=== PATIENT | female | born 1955 | race Caucasian/White ===

== ENCOUNTER 2017-09-17 13:27 | Observation (INO) | payer OTHER ==
[2017-09-17] VITALS (9 sets, daily range): BP systolic 132–165; BP diastolic 72–98; PULSE 47–59; RESP 16–19; TEMP 98.2–98.7; O2SAT 93–100
[~2017-09-17] VITALS: Ht 162.6 cm; Wt 70.0 kg
[2017-09-17] MEDS ORDERED: SODIUM CHLORID 0.9% 500 ML INJ 500 ML IV ONE (14:00)
[2017-09-17] MEDS ORDERED: NITROGLYCERIN 0.4 MG SL 25 TABS/BTL SL ONE (14:00)
[2017-09-17] MEDS ORDERED: MORPHINE SULFATE 4 MG/ML INJ IV PUSH ONE (14:00)
[2017-09-17] MEDS ORDERED: SODIUM CHLORIDE 0.9% FLUSH 10 ML FLUSH IVF PRN (14:00)
--- NOTE | 2017-09-17 14:11 | PD ---
HPI Chief Complaint: Chest Pain Time Seen by Provider: 13:36 Travel History International Travel<30 days: No Contact w/Intl Traveler<30days: No Traveled to known affect area: No History of Present Illness HPI The patient is a 62-year-old female who presents emergency department for chest pain. The patient states she recently traveled to [place] to see her family. She states her family members were sick at that time. She then returned home and had cough and cold symptoms. The cough and cold symptoms resolved approximately 2 weeks ago, she was seen by her primary physician Dr. Levine's office , and had a checkup that was negative per her report. However, the last 2 weeks she has had chest pain which is substernal, radiates bilaterally to the rib cage into the back. She complains of shortness of breath without any nausea , vomiting, or diaphoresis. The patient does have a history of hypertension, diabetes, and marijuana use. Denies any known history of coronary artery disease or hyperlipidemia. She does have a family history of heart disease, states her father had a CABG in his 50s. She denies any previous stress test or cardiac catheterization. She denies any exertional symptoms, can have symptoms that rest or with activity. The patient was evaluated at Dr. Infante's office who referred her to the emergency department for further evaluation of chest pain. The patient received aspirin 325 mg orally prior to arrival. [facility] Past Medical History Diabetes: Yes Patient Takes Glucophage: Yes Hypertension: Yes Medical other: Yes (CKD ) Past Surgical History Other Surgery: Yes (ESOPHAGEAL STRETCHING ) Social History Alcohol Use: No Tobacco Use: No Substance Use: Yes (MARIJUANA ) Allergies-Medications (Allergen,Severity, Reaction): Coded Allergies: No Known Allergies (Unverified , 09/17/17) Review of Systems Except as stated in HPI: all other systems reviewed are Neg General / Constitutional: No: Fever HENT: No: Lightheadedness, Congestion Cardiovascular: Positive: Chest Pain or Discomfort, No: Diaphoresis, Dyspnea on exertion Respiratory: Positive: Shortness of Breath, No: Cough Gastrointestinal: No: Nausea, Vomiting Musculoskeletal: No: Weakness Neurologic: No: Dizziness Physical Exam Narrative GENERAL: Awake, alert, pleasant 62-year-old febrile who appears her stated age is in no acute respiratory distress. SKIN: Focused skin assessment warm/dry. HEAD: Atraumatic. Normocephalic. EYES: No injection or drainage. ENT: No nasal bleeding or discharge. Mucous membranes pink and moist. NECK: Trachea midline. No JVD. CARDIOVASCULAR: Regular rate and rhythm. No murmur appreciated. Palpation the chest wall does not reproduce symptoms. RESPIRATORY: No accessory muscle use. Clear to auscultation. Breath sounds equal bilaterally. GASTROINTESTINAL: Abdomen soft, non-tender, nondistended. No rebound tenderness. MUSCULOSKELETAL: No obvious deformities. No clubbing. No cyanosis. No edema. NEUROLOGICAL: Awake and alert. No obvious cranial nerve deficits. Motor grossly within normal limits. Normal speech. PSYCHIATRIC: Appropriate mood and affect; insight and judgment normal. Data Data Last Documented VS Vital Signs Date Time Temp Pulse Resp B/P (MAP) Pulse Ox O2 Delivery O2 Flow Rate FiO2 09/17/17 14:41 96 Room Air 09/17/17 14:41 57 18 137/84 (101) 09/17/17 13:30 98.2 Orders Orders Electrocardiogram (09/17/17 14:00) Ckmb (Isoenzyme) Profile (09/17/17 14:00) Complete Blood Count With Diff (09/17/17 14:00) Comprehensive Metabolic Panel (09/17/17 14:00) Magnesium (Mg) (09/17/17 14:00) Prothrombin Time / Inr (Pt) (09/17/17 14:00) Act Partial Throm Time (Ptt) (09/17/17 14:00) Troponin I (09/17/17 14:00) Chest, Single Ap (09/17/17 14:00) Ecg Monitoring (09/17/17 14:00) Bilateral Bp Monitoring (09/17/17 14:00) Iv Access Insert/Monitor (09/17/17 14:00) Oximetry (09/17/17 14:00) Oxygen Administration (09/17/17 14:00) Morphine Inj (Morphine Inj) (09/17/17 14:00) Sodium Chloride 0.9% Flush (Ns Flush) (09/17/17 14:00) Nitroglycerin Sl (Nitrostat Sl) (09/17/17 14:00) Sodium Chlorid 0.9% 500 Ml Inj (Ns 500 M (09/17/17 14:00) Lipase (09/17/17 14:11) CKMB (09/17/17 14:30) CKMB% (09/17/17 14:30) Admit Order (Ed Use Only) (09/17/17 16:32) Labs Laboratory Tests Test 09/17/17 14:30 09/17/17 15:26 Blood Urea Nitrogen 11 MG/DL Creatinine 0.99 MG/DL Random Glucose 69 MG/DL Total Protein 8.6 GM/DL Albumin 4.5 GM/DL Calcium Level 8.8 MG/DL Magnesium Level 2.3 MG/DL Alkaline Phosphatase 66 U/L Aspartate Amino Transf (AST/SGOT) 35 U/L Alanine Aminotransferase (ALT/SGPT) 29 U/L Total Bilirubin 0.4 MG/DL Sodium Level 137 MEQ/L Potassium Level 3.9 MEQ/L Chloride Level 102 MEQ/L Carbon Dioxide Level 30.7 MEQ/L Anion Gap 4 MEQ/L Estimat Glomerular Filtration Rate 57 ML/MIN Total Creatine Kinase 326 U/L Creatine Kinase MB 2.5 NG/ML Creatine Kinase MB % 0.8 % Troponin I LESS THAN 0.02 NG/ML Lipase 64 U/L White Blood Count 5.9 TH/MM3 Red Blood Count 3.71 MIL/MM3 Hemoglobin 11.9 GM/DL Hematocrit 35.0 % Mean Corpuscular Volume 94.3 FL Mean Corpuscular Hemoglobin 32.0 PG Mean Corpuscular Hemoglobin Concent 34.0 % Red Cell Distribution Width 14.1 % Platelet Count 209 TH/MM3 Mean Platelet Volume 8.8 FL Neutrophils (%) (Auto) 46.7 % Lymphocytes (%) (Auto) 45.3 % Monocytes (%) (Auto) 6.1 % Eosinophils (%) (Auto) 0.9 % Basophils (%) (Auto) 1.0 % Neutrophils # (Auto) 2.7 TH/MM3 Lymphocytes # (Auto) 2.7 TH/MM3 Monocytes # (Auto) 0.4 TH/MM3 Eosinophils # (Auto) 0.1 TH/MM3 Basophils # (Auto) 0.1 TH/MM3 CBC Comment DIFF FINAL Differential Comment Prothrombin Time 10.4 SEC Prothromb Time International Ratio 1.0 RATIO Activated Partial Thromboplast Time 27.4 SEC Exceptions Acute Myocardial Infarction ASA Not Given on Arrival: Already taken by patient MDM Medical Decision Making Medical Screen Exam Complete: Yes Emergency Medical Condition: Yes Medical Record Reviewed: Yes Interpretation(s) Last Impressions Chest X-Ray 09/17/17 1400 Signed Impressions: Service Date/Time: Sunday, September 17, 2017 14:09 - CONCLUSION: Very minimal bibasilar parenchymal changes. Santo Ramsey MD FACR Laboratory Tests Test 09/17/17 14:30 09/17/17 15:26 Blood Urea Nitrogen 11 MG/DL Creatinine 0.99 MG/DL Random Glucose 69 MG/DL Total Protein 8.6 GM/DL Albumin 4.5 GM/DL Calcium Level 8.8 MG/DL Magnesium Level 2.3 MG/DL Alkaline Phosphatase 66 U/L Aspartate Amino Transf (AST/SGOT) 35 U/L Alanine Aminotransferase (ALT/SGPT) 29 U/L Total Bilirubin 0.4 MG/DL Sodium Level 137 MEQ/L Potassium Level 3.9 MEQ/L Chloride Level 102 MEQ/L Carbon Dioxide Level 30.7 MEQ/L Anion Gap 4 MEQ/L Estimat Glomerular Filtration Rate 57 ML/MIN Total Creatine Kinase 326 U/L Creatine Kinase MB 2.5 NG/ML Creatine Kinase MB % 0.8 % Troponin I LESS THAN 0.02 NG/ML Lipase 64 U/L White Blood Count 5.9 TH/MM3 Red Blood Count 3.71 MIL/MM3 Hemoglobin 11.9 GM/DL Hematocrit 35.0 % Mean Corpuscular Volume 94.3 FL Mean Corpuscular Hemoglobin 32.0 PG Mean Corpuscular Hemoglobin Concent 34.0 % Red Cell Distribution Width 14.1 % Platelet Count 209 TH/MM3 Mean Platelet Volume 8.8 FL Neutrophils (%) (Auto) 46.7 % Lymphocytes (%) (Auto) 45.3 % Monocytes (%) (Auto) 6.1 % Eosinophils (%) (Auto) 0.9 % Basophils (%) (Auto) 1.0 % Neutrophils # (Auto) 2.7 TH/MM3 Lymphocytes # (Auto) 2.7 TH/MM3 Monocytes # (Auto) 0.4 TH/MM3 Eosinophils # (Auto) 0.1 TH/MM3 Basophils # (Auto) 0.1 TH/MM3 CBC Comment DIFF FINAL Differential Comment Prothrombin Time 10.4 SEC Prothromb Time International Ratio 1.0 RATIO Activated Partial Thromboplast Time 27.4 SEC Differential Diagnosis Differential diagnosis includes acute coronary syndrome, STEMI, GERD, esophageal spasm, pancreatitis, pneumonia, dissection. Narrative Course IV was established, labs are drawn and sent, and the patient was placed on cardiac telemetry monitoring and continuous pulse oximetry monitoring. EKG was ordered and interpreted. Chest x-ray was obtained. The patient received aspirin prior to arrival, was administered nitroglycerin. Chest x-rays unremarkable. Initial troponin is unremarkable. CPK is minimally elevated. Patient has chest pain and no cough and cold symptoms, no fever, therefore, will be 23 hour observation to the chest pain center for serial cardiac enzymes and further evaluation by cardiology. I discussed the findings with the patient is comfortable with this plan of care and disposition. Physician Communication Physician Communication The patient will be 23 hour observation to the chest pain center for serial cardiac enzymes and further evaluation by cardiology. Diagnosis Primary Impression: Chest pain Qualified Codes: R07.9 - Chest pain, unspecified Condition: Stable Pablo Esqueda MD Sep 17, 2017 14:11
--- NOTE | 2017-09-17 14:41 | RADRPT ---
EXAM DATE/TIME: 09/17/2017 14:09 [facility] COMPARISON: No previous studies available for comparison. INDICATIONS : Midline chest pain with shortness of breath and dizziness. MEDICAL HISTORY : Chronic obstructive pulmonary disease. SURGICAL HISTORY : None. ENCOUNTER: Initial ACUITY: 1 week PAIN SCORE: 5/10 LOCATION: Chest, midline. FINDINGS: A single view of the chest demonstrates the lungs to be symmetrically aerated without evidence of mas s, infiltrate or effusion. Very minimal bibasilar parenchymal changes are evident. The cardiomediast inal contours are unremarkable. Osseous structures are intact. CONCLUSION: Very minimal bibasilar parenchymal changes. Santo Ramsey MD FACR on September 17, 2017 at 14:39 Board Certified Radiologist. This report was verified electronically.
[2017-09-17 15:12] LABS: ALBUMIN 4.5 GM/DL (3.4-5.0); ALT (GPT) 29 U/L (10-53); AST (GOT) 35 U/L (15-37); BICARBONATE 30.7 MEQ/L (21.0-32.0); BLOOD UREA NITROGEN 11 MG/DL (7-18); CALCIUM 8.8 MG/DL (8.5-10.1); CHLORIDE 102 MEQ/L (98-107); CREATININE 0.99 MG/DL (0.50-1.00); GLOMERULAR FILTRATION RATE 57 ML/MIN (>89); GLUCOSE,RANDOM 69 MG/DL (74-106); MAGNESIUM 2.3 MG/DL (1.5-2.5); SODIUM (NA) 137 MEQ/L (136-145)
[2017-09-17 15:21] LABS: ALKALINE PHOSPHATASE 66 U/L (45-117); TOTAL BILIRUBIN ADULT 0.4 MG/DL (0.2-1.0); TOTAL PROTEIN 8.6 GM/DL (6.4-8.2); TROPONIN I LESS THAN 0.02 NG/ML (0.02-0.05)
[2017-09-17 16:18] LABS: AUTOMATED NEUTROPHIL # 2.7 TH/MM3 (1.8-7.7); BASOPHIL # 0.1 TH/MM3 (0-0.2); EOSINOPHIL # 0.1 TH/MM3 (0-0.4); EOSINOPHIL % 0.9 % (0.0-4.0); HEMOGLOBIN 11.9 GM/DL (11.6-15.3); LYMPH % 45.3 % (9.0-44.0); LYMPHOCYTE # 2.7 TH/MM3 (1.0-4.8); MEAN CELL VOLUME 94.3 FL (80.0-100.0); MEAN PLATELET VOLUME 8.8 FL (7.0-11.0); MONO % 6.1 % (0.0-8.0); MONOCYTE # 0.4 TH/MM3 (0-0.9); NEUT % 46.7 % (16.0-70.0); PLATELET COUNT 209 TH/MM3 (150-450); RED BLOOD COUNT 3.71 MIL/MM3 (4.00-5.30); RED CELL DISTRIBUTION WIDTH 14.1 % (11.6-17.2); WHITE BLOOD COUNT 5.9 TH/MM3 (4.0-11.0)
[2017-09-17 16:28] LABS: PROTHROMBIN TIME - PATIENT 10.4 SEC (9.8-11.6)
[2017-09-17] MEDS ORDERED: ACETAMINOPHEN 500 MG CPLT PO PRN (17:30)
[2017-09-17] MEDS ORDERED: SODIUM CHLORIDE 0.9% FLUSH 10 ML FLUSH IV FLUSH PRN (17:30)
[2017-09-17] MEDS ORDERED: MORPHINE SULFATE 4 MG/ML INJ IV PUSH PRN (17:30)
[2017-09-17] MEDS ORDERED: NITROGLYCERIN 0.4 MG SL 25 TABS/BTL SL PRN (17:30)
[2017-09-17] MEDS: SODIUM CHLOR 0.9% 1000 ML INJ 1,000 ML IV SCH (18:24)
[2017-09-17 18:32] LABS: TROPONIN I LESS THAN 0.02 NG/ML (0.02-0.05)
[2017-09-17] MEDS: SODIUM CHLORIDE 0.9% FLUSH 10 ML FLUSH IV FLUSH SCH (21:00)
[2017-09-17 21:20] LABS: TROPONIN I LESS THAN 0.02 NG/ML (0.02-0.05)
[2017-09-17] MEDS ORDERED: THERH PO (22:11)
[2017-09-17] MEDS ORDERED: ATOR10TA15 PO (22:11)
[2017-09-17] MEDS ORDERED: VITA500T83 PO (22:11)
[2017-09-17] MEDS ORDERED: CYCL5TAB PO (22:11)
[2017-09-17] MEDS ORDERED: ASPI81CH6 CHEW (22:11)
[2017-09-17] MEDS ORDERED: HYDR25TA5 PO (22:11)
[2017-09-17] MEDS ORDERED: METF1000 PO (22:11)
[2017-09-18] VITALS: PULSE 48
[2017-09-18] MEDS: SODIUM CHLOR 0.9% 1000 ML INJ 1,000 ML IV SCH (02:08)
[2017-09-18 03:41] VITALS: BP 150/75; PULSE 49; RESP 18; O2SAT 100
[2017-09-18] MEDS: ACETAMINOPHEN/HYDROcodone 325 MG/7.5 MG TAB PO PRN ×2 (03:49→09:31)
[2017-09-18 04:05] VITALS: PULSE 49
[2017-09-18 08:37] VITALS: BP 130/76; PULSE 51; RESP 18; TEMP 96.6; O2SAT 99
[2017-09-18] MEDS ORDERED: GLUCAGON 1 MG/ML VIAL OTHER PRN (09:00)
[2017-09-18] MEDS ORDERED: HYDROCHLOROTHIAZIDE 25 MG TAB PO SCH (09:00)
[2017-09-18] MEDS ORDERED: DEXTROSE 50% IN WATER 50 ML VIAL(D50) IV PUSH PRN (09:00)
[2017-09-18] MEDS ORDERED: MULTIVITAMIN HEMATINIC THERAPEUTIC TAB PO SCH (09:00)
[2017-09-18] MEDS: SODIUM CHLORIDE 0.9% FLUSH 10 ML FLUSH IV FLUSH SCH (09:00)
[2017-09-18] MEDS ORDERED: ASPIRIN 325 MG TAB PO SCH (09:00)
[2017-09-18 09:25] VITALS: PULSE 58
[2017-09-18] MEDS: CYCLOBENZAPRINE HCL 10 MG TAB PO SCH ×2 (09:30→13:10)
--- NOTE | 2017-09-18 11:00 | HHI.HP ---
[facility] Primary Care Physician Mitch Estrada MD Chief Complaint Chest pain History of Present Illness This is a 62-year-old female with history of diabetes, hyperlipidemia, chronic back and hip pain presents to ED to be evaluated for chest discomfort. Patient states that she has had a constant central chest heaviness for the past week and a half. She states it is worse when she is upset previously states he gets upset over stressful situations with her daughter. States her oldest daughter is an alcoholic and living out of a car and she is worried about her. States she has been short of breath and nauseous with her symptoms. Denies diaphoresis. Denies prior history of CAD. States she has had a stress test in the past but has been years ago. Voices compliance with her diabetic medications and her cholesterol medication. Cannot recall ever being on an MANAS inhibitor. Currently does not have chest discomfort. Review of Systems General: Patient denies fevers, chills recent, and recent travel HEENT: Patient denies headache, sore throat, difficulty swallowing. Cardiovascular: Has the chest discomfort as mentioned above. Denies sensation of heart beating rapidly or irregularly. No syncope. Denies diaphoresis. Respiratory: Intermittent shortness of breath. Denies inspirational chest discomfort. Denies coughing wheezing or hemoptysis. GI: Intermittent nausea. Patient denies vomiting, diarrhea, abdominal pain, bloody stools. Musculoskeletal: Chronic back and hip pain. Patient denies joint edema. Denies calf pain or edema. Neurovascular: Patient denies numbness, tingling, weakness in extremities. Denies headache. Endocrine: Denies polyuria and polydipsia. Hematologic: Denies easy bruising. Skin: Denies rash or itching. Past Family Social History Allergies: Coded Allergies: No Known Allergies (Unverified , 09/17/17) Past Medical History Diabetes and hyperlipidemia. 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 Chronic back and hip pain. Esophageal stricture. GERD. Denies hypertension and known CAD. Lifetime non-smoker. Past Surgical History Dilatation of esophageal stricture. Reported Medications Reported Meds & Active Scripts Active Reported Vitamin C ER (Ascorbic Acid) 500 Mg Timothy 500 Mg PO Therems-H (Multivitamin Hematinic Therapeutic) 1 Tab 1 Tab PO DAILY Flexeril (Cyclobenzaprine HCl) 5 Mg Tab 5 Mg PO TID Atorvastatin (Atorvastatin Calcium) 10 Mg Tab 10 Mg PO HS Aspirin Low Dose (Aspirin) 81 Mg Chew 81 Mg CHEW DAILY Hydrochlorothiazide 25 Mg Tab 25 Mg PO DAILY Metformin (Metformin HCl) 1,000 Mg Tab 1,000 Mg PO BIDPC Active Ordered Medications Current Medications Medications (Trade) Dose Ordered Sig/Tim Route Start Time Stop Time Status Last Admin Sodium Chloride 1,000 ml @ 100 mls/hr Q10H IV 09/17/17 17:29 09/18/17 02:08 (NS Flush) 2 ml UNSCH PRN IV FLUSH 09/17/17 17:30 (NS Flush) 2 ml BID IV FLUSH 09/17/17 21:00 (Tylenol) 500 mg Q4H PRN PO 09/17/17 17:30 (Ivanhoe 7.5-325 Mg) 1 tab Q4H PRN PO 09/17/17 17:30 09/18/17 09:31 (Morphine Inj) 2 mg Q4H PRN IV PUSH 09/17/17 17:30 (Nitrostat Sl) 0.4 mg Q5M PRN SL 09/17/17 17:30 09/18/17 07:41 (Aspirin) 325 mg DAILY PO 09/18/17 09:00 09/18/17 09:30 (Lipitor) 10 mg HS PO 09/18/17 21:00 (Flexeril) 5 mg TID PO 09/18/17 09:00 09/18/17 09:30 (Hydrodiuril) 25 mg DAILY PO 09/18/17 09:00 09/18/17 09:30 (Theragran Hematinic) 1 tab DAILY PO 09/18/17 09:00 (NovoLOG SUPPLEMENTAL SCALE) 1 ACHS SLIDING SCALE SQ 09/18/17 12:00 (D50w (Vial) Inj) 50 ml UNSCH PRN IV PUSH 09/18/17 09:00 (Glucagon Inj) 1 mg UNSCH PRN OTHER 09/18/17 09:00 Family History Both parents have heart disease. Social History Non-smoker. Denies alcohol. Has occasional marijuana. Physical Exam Vital Signs Vital Signs Date Time Temp Pulse Resp B/P (MAP) Pulse Ox O2 Delivery O2 Flow Rate FiO2 09/18/17 09:25 100 Nasal Cannula 2.00 21 09/18/17 09:25 58 09/18/17 08:37 96.6 51 18 130/76 (94) 99 09/18/17 04:05 49 09/18/17 03:41 49 18 150/75 (100) 100 09/18/17 00:00 48 09/17/17 23:19 98.3 47 18 134/81 (98) 100 09/17/17 22:58 95 Nasal Cannula 2.00 09/17/17 21:05 51 09/17/17 21:00 95 09/17/17 20:55 98.7 58 18 139/72 (94) 93 09/17/17 19:51 99 09/17/17 18:24 53 18 132/73 (92) 98 09/17/17 17:30 57 19 132/73 (92) 98 Room Air 09/17/17 14:41 96 Room Air 09/17/17 14:41 57 18 137/84 (101) 96 Room Air 09/17/17 14:41 57 18 137/84 (101) 96 Room Air 165/85 (111) 09/17/17 13:54 58 17 97 Room Air 09/17/17 13:30 98.2 59 16 139/98 (112) 96 Physical Exam GENERAL: This is a well-nourished, well-developed patient, in no apparent distress. Patient speaks in clear complete sentences. Patient is pleasant. HEENT: Head is atraumatic and normocephalic. Neck is supple without lymphadenopathy and trachea is midline. No JVD or carotid bruits. CARDIOVASCULAR: Regular rate and rhythm without murmurs, gallops, or rubs. RESPIRATORY: Clear to auscultation. Breath sounds equal bilaterally. No wheezes , rales, or rhonchi. Chest wall is tender but not similar to the discomfort she has been having.. No use of accessory muscles. GASTROINTESTINAL: Abdomen is nontender, nondistended. Abdomen soft. No obvious pulsatile mass or bruit. No CVA tenderness. Strong femoral pulses bilaterally. Normal bowel sounds in all quadrants. MUSCULOSKELETAL: Patient is moving upper and lower extremities freely. No calf tenderness or edema, no Homans sign. Strong pulses in upper and lower extremities. NEUROLOGICAL: Patient is alert and oriented. Cranial nerves 2-12 are grossly intact. No focal deficits and speech is clear. SKIN: No rash and turgor is normal. Laboratory Laboratory Tests Test 09/17/17 14:30 09/17/17 15:26 09/17/17 17:40 09/17/17 20:30 Blood Urea Nitrogen 11 Creatinine 0.99 Random Glucose 69 Total Protein 8.6 Albumin 4.5 Calcium Level 8.8 Magnesium Level 2.3 Alkaline Phosphatase 66 Aspartate Amino Transf (AST/SGOT) 35 Alanine Aminotransferase (ALT/SGPT) 29 Total Bilirubin 0.4 Sodium Level 137 Potassium Level 3.9 Chloride Level 102 Carbon Dioxide Level 30.7 Anion Gap 4 Estimat Glomerular Filtration Rate 57 Total Creatine Kinase 326 234 212 Creatine Kinase MB 2.5 2.3 2.2 Creatine Kinase MB % 0.8 1.0 1.0 Troponin I LESS THAN 0.02 LESS THAN 0.02 LESS THAN 0.02 Lipase 64 White Blood Count 5.9 Red Blood Count 3.71 Hemoglobin 11.9 Hematocrit 35.0 Mean Corpuscular Volume 94.3 Mean Corpuscular Hemoglobin 32.0 Mean Corpuscular Hemoglobin Concent 34.0 Red Cell Distribution Width 14.1 Platelet Count 209 Mean Platelet Volume 8.8 Neutrophils (%) (Auto) 46.7 Lymphocytes (%) (Auto) 45.3 Monocytes (%) (Auto) 6.1 Eosinophils (%) (Auto) 0.9 Basophils (%) (Auto) 1.0 Neutrophils # (Auto) 2.7 Lymphocytes # (Auto) 2.7 Monocytes # (Auto) 0.4 Eosinophils # (Auto) 0.1 Basophils # (Auto) 0.1 CBC Comment DIFF FINAL Differential Comment Prothrombin Time 10.4 Prothromb Time International Ratio 1.0 Activated Partial Thromboplast Time 27.4 Result Diagram: 09/17/17 1526 09/17/17 1430 Imaging Last 48 hours Impressions Chest X-Ray 09/17/17 1400 Signed Impressions: Service Date/Time: Sunday, September 17, 2017 14:09 - CONCLUSION: Very minimal bibasilar parenchymal changes. Santo Ramsey MD FACR Course EKG is sinus bradycardia with nonspecific T-wave changes and first-degree block. Caprini VTE Risk Assessment Caprini VTE Risk Assessment: Mod/High Risk (score >= 2) Caprini Risk Assessment Model Point Value = 1 Point Value = 2 Point Value = 3 Point Value = 5 Age 41-60 Minor surgery BMI > 25 kg/m2 Swollen legs Varicose veins or History of unexplained or recurrent spontaneous Oral contraceptives or hormone replacement Sepsis (< 1 month) Serious lung disease, including pneumonia (< 1 month) Abnormal pulmonary function Acute myocardial infarction Congestive heart failure (< 1 month) History of inflammatory bowel disease Medical patient at bed rest Age 61-74 Arthroscopic surgery Major open surgery (> 45 min) Laparoscopic surgery (> 45 min) Malignancy Confined to bed (> 72 hours) Immobilizing plaster cast Central venous access Age >= 75 History of VTE Family history of VTE Factor V Leiden Prothrombin [id number] Lupus anticoagulant Anticardiolipin antibodies Elevated serum homocysteine Heparin-induced thrombocytopenia Other congenital or acquired thrombophilia Stroke (< 1 month) Elective arthroplasty Hip, pelvis, or leg fracture Acute spinal cord injury (< 1 month) Prophylaxis Regimen Total Risk Factor Score Risk Level Prophylaxis Regimen 0-1 Low Early ambulation 2 Moderate Order ONE of the following: *Sequential Compression Device (SCD) *Heparin 5000 units SQ BID 3-4 Higher Order ONE of the following medications: *Heparin 5000 units SQ TID *Enoxaparin/Lovenox 40 mg SQ daily (WT < 150 kg, CrCl > 30 mL/min) *Enoxaparin/Lovenox 30 mg SQ daily (WT < 150 kg, CrCl > 10-29 mL/min) *Enoxaparin/Lovenox 30 mg SQ BID (WT < 150 kg, CrCl > 30 mL/min) AND/OR *Sequential Compression Device (SCD) 5 or more Highest Order ONE of the following medications: *Heparin 5000 units SQ TID (Preferred with Epidurals) *Enoxaparin/Lovenox 40 mg SQ daily (WT < 150 kg, CrCl > 30 mL/min) *Enoxaparin/Lovenox 30 mg SQ daily (WT < 150 kg, CrCl > 10-29 mL/min) *Enoxaparin/Lovenox 30 mg SQ BID (WT < 150 kg, CrCl > 30 mL/min) AND *Sequential Compression Device (SCD) Assessment and Plan Assessment and Plan * Chest pain: Patient has had serial cardiac enzymes and EKGs for ruling out purposes. She will be seen by Dr. Barriga cardiology and the chest pain center. She will undergo a Lexiscan as she states she would not be able to go on a treadmill with her chronic back and hip issues. Patient will be discharged home if her stress test is nonischemic with instructions to follow-up with PCP. Return to ED for interval issues. * Diabetes: Patient has been instructed to follow diabetic diet. She will be on sliding scale insulin coverage while in chest pain center but should resume her medication at discharge. She also needs to discuss MANAS inhibitor with her PCP * Chronic kidney disease: Patient should follow-up with the neurologist. Discuss if she should be on MANAS inhibitor. * Hyperlipidemia: Continue current medication. Patient is stable at this time. She is agreeable to this plan. Piotr Magallon Sep 18, 2017 11:00
--- NOTE | 2017-09-18 11:20 | EKG ---
Date Performed: 09/17/2017 Time Performed: 21:04:58 PTAGE: 62 years EKG: SINUS BRADYCARDIA WITH FIRST DEGREE AV BLOCK PATTERN CONSISTENT WITH PULMONARY DISEASE LEFT ANTERIOR FASCICULAR BLOCK ABNORMAL QRS-T ANGLE ABNORMAL ECG PREVIOUS TRACING : 09/17/2017 17.48 Since previous tracing, no significant change noted DOCTOR: Remigio Barriga Interpretating Date/Time 09/18/2017 11:18:49
[2017-09-18] MEDS ORDERED: REGADENOSON INJ 0.4 MG/5 ML SYR ONE (11:36)
[2017-09-18] MEDS ORDERED: INSULIN ASPART SUPPLEMENTAL SCALE SQ SCH (12:00)
--- NOTE | 2017-09-18 12:50 | RADRPT ---
EXAM DATE/TIME: 09/18/2017 11:18 [facility] COMPARISON: No previous studies available for comparison. INDICATIONS : Mid chest pain radiating to the back for two weeks. Angina. DOSE: 26.2 mCi Tc99m Myoview at stress. 8.7 mCi Tc99m Myoview at rest. 0.4 mg Lexiscan STRESS SYMPTOMS: Shortness of breath and nausea. EJECTION FRACTION: 63% MEDICAL HISTORY : Hypertension. Diabetes mellitus type 2. Renal failure, chronic. SURGICAL HISTORY : None. ENCOUNTER: Initial ACUITY: 2 weeks PAIN SCALE: 7/10 LOCATION: Midsternal chest TECHNIQUE: The patient underwent pharmacologic stress with infusion of prescribed dose. Continuous ECG tracing was monitored during stress. Gated SPECT imaging was performed after stress and conventional SPECT i maging was performed at rest. The examination was performed on a SPECT/CT scanner, both attenuation and non-corrected datasets were reviewed. FINDINGS: DISTRIBUTION: The maximum perfused segment at stress is in the septal wall. PERFUSION STUDY: The pattern of perfusion at stress is within normal limits. GATED STUDY: There is intact wall motion and thickening without hypokinetic or dyskinetic segments. CONCLUSION: Unremarkable myocardial perfusion exam. RISK CATEGORY: Low Alexis Lou MD on September 18, 2017 at 12:48 Board Certified Radiologist. This report was verified electronically.
[2017-09-18 13:00] VITALS: BP 125/72; PULSE 47; RESP 16; TEMP 96.7; O2SAT 98
--- NOTE | 2017-09-18 13:58 | HHI.DCPOC ---
Discharge Care Plan Diagnosis: (1) Chest pain (2) Chronic back pain (3) DM (diabetes mellitus) (4) Hyperlipidemia Goals to Promote Your Health WITH YOUR HISTORY OF DIABETES, DISCUSS WITH YOUR PRIMARY CARE PHYSICIAN IF YOU SHOULD BE ON A BLOOD PRESSURE MEDICATION CALLED AN MANAS INHIBITOR. * To prevent worsening of your condition and complications * To maintain your health at the optimal level Directions to Meet Your Goals Take your medications as prescribed Follow your dietary instruction Follow activity as directed Keep your appointments as scheduled Take your immunizations and boosters as scheduled If your symptoms worsen call your PCP, if no PCP go to Urgent Care Center or Emergency Room Smoking is Dangerous to Your Health. Avoid second hand smoke Call the 24-hour hour crisis hotline for domestic abuse at Piotr Magallon Sep 18, 2017 13:58
--- NOTE | 2017-09-18 14:20 | EKG ---
Date Performed: 09/17/2017 Time Performed: 17:48:28 PTAGE: 62 years EKG: SINUS BRADYCARDIA PATTERN CONSISTENT WITH PULMONARY DISEASE LEFT ANTERIOR FASCICULAR BLOCK ABNORMAL QRS-T ANGLE ABNORMAL ECG PREVIOUS TRACING : 09/17/2017 14.15 Since previous tracing, no significant change noted DOCTOR: Remigio Barriga Interpretating Date/Time 09/18/2017 14:19:28
--- NOTE | 2017-09-18 14:29 | TR ---
Date Performed: 09/18/2017 Time Performed: 11:57:02 DOCTOR: Remigio Barriga DRUG LIST: CLINICAL HISTORY: ANGINA REASON FOR TEST: Angina REASON FOR ENDING: OBSERVATION: CONCLUSION: Lexiscan stress test was performed under standard four minute protocol. Radionuclid e was injected one minute prior to ending the test. No electrocardiographic abormalities were present to suggest ischemia. Nuclear imaging and interpretation are pending. COMMENTS:
[2017-09-18] MEDS ORDERED: ATORVASTATIN 10 MG TAB PO SCH (21:00)
--- NOTE | 2017-09-20 23:16 | EKG ---
Date Performed: 09/17/2017 Time Performed: 14:15:48 PTAGE: 62 years EKG: SINUS BRADYCARDIA PATTERN CONSISTENT WITH PULMONARY DISEASE LEFT ANTERIOR FASCICULAR BLOCK ABNORMAL QRS-T ANGLE ABNORMAL ECG NO PREVIOUS TRACING DOCTOR: Adelina Russell Interpretating Date/Time 09/20/2017 23:07:01
== END 2017-09-18 15:10 | disposition home or self-care (01) ==
LOC: NEPC 13:27 → NEDA 16:34 → NEPFCDU 18:32
PROVIDERS: ADMIT Internal Medicine Interventional Cardiology; ATTEND Internal Medicine Interventional Cardiology
DX: R07.9 Chest pain, unspecified (principal); R06.02 Shortness of breath; R11.0 Nausea; R00.1 Bradycardia, unspecified; I44.0 Atrioventricular block, first degree; I44.4 Left anterior fascicular block; R94.31 Abnormal electrocardiogram [ECG] [EKG]; I12.9 Hypertensive chronic kidney disease with stage 1 through stage 4 chronic kidney disease, or unspecified chronic kidney disease; E11.22 Type 2 diabetes mellitus with diabetic chronic kidney disease; N18.9 Chronic kidney disease, unspecified; E78.5 Hyperlipidemia, unspecified; J44.9 Chronic obstructive pulmonary disease, unspecified; I20.9 Angina pectoris, unspecified; M54.9 Dorsalgia, unspecified; M25.559 Pain in unspecified hip; G89.29 Other chronic pain; K21.9 Gastro-esophageal reflux disease without esophagitis; F12.90 Cannabis use, unspecified, uncomplicated; Z79.899 Other long term (current) drug therapy; Z79.82 Long term (current) use of aspirin; Z79.84 Long term (current) use of oral hypoglycemic drugs; Z82.49 Family history of ischemic heart disease and other diseases of the circulatory system
CPT/HCPCS: 71045; 78452; 80053; 82550; 82552; 82948; 83690; 83735; 84484; 85025; 85610; 85730; 93005; 93017; 96361; 96374; 99285; A9502; G0378; J2270; J2785; J7030; J7040

== ENCOUNTER → 2017-10-27 | Outpatient (CLI) | payer OTHER ==
[~2017-10-27] MED LIST: ASPI81CH6 CHEW; ATOR10TA15 PO; CYCL5TAB PO; HYDR25TA5 PO; METF1000 PO; THERH PO; VITA500T83 PO
--- NOTE | 2017-10-27 12:55 | RADRPT ---
EXAM DATE/TIME: 10/27/2017 11:59 [facility] COMPARISON: CHEST SINGLE AP, September 17, 2017, 14:09. INDICATIONS : Mastodynia, paresthesia of the skin (breast). MEDICAL HISTORY : Hypertension. Diabetes mellitus type 2. Renal failure, chronic. SURGICAL HISTORY : None. ENCOUNTER: Initial ACUITY: 3 weeks PAIN SCORE: 8/10 LOCATION: chest FINDINGS: Bibasilar discoid atelectasis is noted. The heart is stable. The pulmonary vascular pattern is normal . Mild degenerative changes and scoliosis of the thoracic spine are noted. CONCLUSION: Bibasilar discoid atelectasis. Mild degenerative changes and scoliosis of the thoracic spine are note d. Yordan Hunter MD on October 27, 2017 at 12:52 Board Certified Radiologist. This report was verified electronically.
--- NOTE | 2017-10-27 13:00 | RADRPT ---
EXAM DATE/TIME: 10/27/2017 12:04 [facility] COMPARISON: No previous studies available for comparison. INDICATIONS : Thoracic spine pain. MEDICAL HISTORY : Hypertension. Diabetes mellitus type 2. Renal failure, chronic. SURGICAL HISTORY : None. ENCOUNTER: Initial ACUITY: >1 year PAIN SCORE: 7/10 LOCATION: thoracic spine FINDINGS: Degenerative changes and scoliosis of the thoracic spine are noted. There is no acute compression fra cture or subluxation. CONCLUSION: No acute compression fracture or subluxation. Degenerative changes and scoliosis of t he thoracic spine. Yordan Hunter MD on October 27, 2017 at 12:58 Board Certified Radiologist. This report was verified electronically.
--- NOTE | 2017-10-27 13:01 | RADRPT ---
EXAM DATE/TIME: 10/27/2017 12:05 [facility] COMPARISON: No previous studies available for comparison. INDICATIONS : Lumbar spine pain. MEDICAL HISTORY : None. Hypertension. Diabetes mellitus type 2. Renal failure, chronic. SURGICAL HISTORY : None. ENCOUNTER: Initial ACUITY: >1 year PAIN SCORE: 7/10 LOCATION: lumbar FINDINGS: There are five non-rib bearing vertebral bodies. The vertebral bodies are in normal alignment withou t evidence of subluxation or scoliosis. Mild degenerative changes are noted. The disc spaces are sydney ntained. The posterior elements are intact without evidence of spondylolysis. The pedicles are inta ct. Bony mineralization is normal. No fracture is identified. CONCLUSION: Mild degenerative changes. No acute compression fracture, spondylolisthesis or spondylolysis. Yordan Hunter MD on October 27, 2017 at 12:59 Board Certified Radiologist. This report was verified electronically.
--- NOTE | 2017-10-27 13:03 | RADRPT ---
EXAM DATE/TIME: 10/27/2017 12:02 [facility] COMPARISON: No previous studies available for comparison. INDICATIONS : Flank pain. MEDICAL HISTORY : Hypertension. Diabetes mellitus type 2. Renal failure, chronic. SURGICAL HISTORY : None. ENCOUNTER: Initial ACUITY: >1 year PAIN SCORE: 6/10 LOCATION: Bilateral flank FINDINGS: Supine view of the abdomen was performed. The abdominal bowel gas pattern is normal. No abnormal ma sses, calcifications, or organomegaly is seen. Mild degenerative changes and scoliosis of the lumbar spine are noted. CONCLUSION: No evidence of bowel obstruction, ileus or perforation. No definite radiopaque densit ies resembling urinary calculi. Mild degenerative changes and scoliosis of the lumbar spine. Yordan Hunter MD on October 27, 2017 at 13:01 Board Certified Radiologist. This report was verified electronically.
== END ==
LOC: HRAD 11:28
PROVIDERS: ATTEND Nurse Practitioner Family
DX: N64.4 Mastodynia (principal); R20.2 Paresthesia of skin; M54.5 Low back pain
CPT/HCPCS: 71046; 72070; 72110; 74018